=== PATIENT | female | born 1950 | race Caucasian/White ===

== ENCOUNTER 2017-08-06 10:26 | Day surgery (SDC) | payer MEDICARE, BC ==
[~2017-08-06 10:26] MED LIST: Buffered Lidocaine 0.9% SYRIN* 5 ML/SYR SYRINGE INTRADERM ONE
[2017-08-06] MEDS ORDERED: fentaNYL* 50 MCG/ML 2 ML VIAL (100 MCG VIAL) ONE (10:53)
[2017-08-06] MEDS ORDERED: Midazolam* 1 MG/ML 2 ML VIAL (2 MG) ONE (10:53)
[2017-08-06] MEDS ORDERED: Propofol* 10 MG/ML 20 ML BTL IV PUSH ONE (10:54)
[2017-08-06] MEDS ORDERED: Bupivacaine 0.25% SDV* 30 ML ONE (11:31)
[2017-08-06] MEDS ORDERED: Ondansetron INJ* 2 MG/ML VIAL IV PRN (11:47)
[2017-08-06] MEDS ORDERED: Naloxone* 0.4 MG/ML 1 ML VIAL IV PRN (11:47)
[2017-08-06 15:05] VITALS: BP 132/78
--- NOTE | 2017-08-07 12:57 | OP ---
OPERATIVE REPORT: DATE OF OPERATION: 08/06/17 DATE OF : 50 SURGEON: Sebastian Rahman MD MELTING OPERATOR: KATH Rice ANESTHESIOLOGIST: Dr. Barry. ANESTHESIA: Local MAC. PRE-OP DIAGNOSES: Right carpal tunnel syndrome and right ring trigger finger. POST-OP DIAGNOSES: Right carpal tunnel syndrome and right ring trigger finger. OPERATIVE PROCEDURE: 1. Right open carpal tunnel release. 2. Right ring trigger finger release of A1 rivera. INDICATIONS: Larissa is 67, she has severe carpal tunnel syndrome with quite a bit of atrophy and pret ty severe numbness and tingling as well as very severe trigger finger on the ring finger. We had marco ked about the need to do the carpal tunnel release to see if we could halt the progression of the dis ease and see what neurological function she had left in that median nerve, would also do the right ri ng trigger finger release. She understood the risks and benefits. She wanted to proceed. ESTIMATED BLOOD LOSS: 2 mL. COMPLICATIONS: None. FINDINGS: As expected. DESCRIPTION OF PROCEDURE: Larissa was seen in the preoperative holding area. The correct site, side, and procedure were identified. We came back to the operating room and the arm was prepped and draped in the usual fashion. A time-out was performed. I began by exsanguinating the arm with the Esmarch and the tourniquet was inflated to 250 mmHg. I craig d infiltrated with 0.25% plain Marcaine in the operative area. I made a 2-cm incision in the standar d location for an open carpal tunnel release. Dissection was carried down in the subcutaneous tissue and palmar fascia was released. The transverse carpal ligament was released just off the radial aspe ct of the hook of the hamate. The release was completed distally and proximally with the tenotomy sc issors. Once there was absolutely no compression on the nerve, we irrigated out the wound and the sk in was closed with 4-0 nylon suture. I then made a 1-cm longitudinal incision over the A1 rivera of the right ring finger. Dissection was carried down and the subcutaneous tissue was released. The sheath was visualized. A 15-blade was u sed to make a longitudinal split through the A1 rivera. The release was completed distally and proxi yoana with the tenotomy scissors. I then went ahead and excised some pretty significant flexor tenos ynovitis all without the tendons. I broke up the adhesions between the 2 tendons. Everything was lo oking good, so we irrigated out the wound and the skin was closed with 4-0 nylon suture. Wounds were dressed with Xeroform, 4x4, sterile Webril, and an Ruddy wrap. She was taken to the recovery room in stable condition. [id number]/[facility] #: [id number]
== END 2017-08-06 15:08 | disposition home or self-care (01) ==
LOC: OREAST 10:26
PROVIDERS: ATTEND Orthopaedic Surgery Hand Surgery
DX: G56.01 Carpal tunnel syndrome, right upper limb (principal); M65.341 Trigger finger, right ring finger; G82.20 Paraplegia, unspecified; Z79.01 Long term (current) use of anticoagulants; Z87.891 Personal history of nicotine dependence; R60.0 Localized edema; I34.0 Nonrheumatic mitral (valve) insufficiency; I48.1 Persistent atrial fibrillation; N31.9 Neuromuscular dysfunction of bladder, unspecified
CPT/HCPCS: J2250; J2704; J3010

== ENCOUNTER 2017-08-27 08:55 | Day surgery (SDC) | payer MEDICARE, BC ==
[2017-08-27] MEDS ORDERED: Bupivacaine 0.25% SDV* 30 ML ONE (11:36)
[2017-08-27] MEDS ORDERED: Naloxone* 0.4 MG/ML 1 ML VIAL IV PRN (11:54)
[2017-08-27] MEDS ORDERED: Lidocaine 2% PF* 10 ML AMP ONE (12:13)
[2017-08-27] MEDS ORDERED: Propofol* 10 MG/ML 20 ML BTL IV PUSH ONE (12:13)
[2017-08-27 13:18] VITALS: BP 128/70
--- NOTE | 2017-08-29 03:15 | OP ---
DATE OF OPERATION: 08/27/17 - [facility] DATE OF : 50 SURGEON: Sebastian Rahman MD FOREIGN LANGUAGE STENOGRAPHER: KATH Rice ANESTHESIOLOGIST: Dom Montanez DO ANESTHESIA: Local MAC. PRE-OP DIAGNOSIS: Left carpal tunnel syndrome. POST-OP DIAGNOSIS: Left carpal tunnel syndrome. OPERATIVE PROCEDURE: Left open carpal tunnel release. ESTIMATED BLOOD LOSS: 2 mL. INDICATIONS: Larissa has had progressive disease. She has had the right side done together with the right trigger finger release. This is done well. She is still having a bit of stiffness in the trigger finger, but it is coming along. She has severe carpal tunnel electrodiagnostically and clinically on the left. She understands she is to have incomplete relief as she also had on the right given she has severe disease there. We talked about risks and benefits. She wanted to proceed. COMPLICATIONS: None. FINDINGS: As expected. DESCRIPTION OF PROCEDURE: Larissa was seen in the preoperative holding area. The correct site, side, and procedure were identified. We came back to the operating room. We had a time-out. I infiltrated the operative area with 0.25 % plain Marcaine. The arm was then prepped and draped in the usual fashion and a time-out was performed. The arm was exsanguinated with Esmarch and the tourniquet was inflated to 250 mmHg. A 3-cm longitudinal skin incision was made . Dissection was carried down to the subcutaneous tissue and palmar fascia. The transverse carpal ligament was released from distal to the proximal just off the radial aspect of the hook of the hamate. The subcutaneous tissue was retracted volarly and ulnarly with the Deidra retractor and then the remainder of the transverse carpal ligament and distal antebrachial fascia was released with the tenotomy scissors under direct visualization. The release was checked. There was absolutely no compression on the nerve and it was completely released. We irrigated out the wounds. The skin was closed with 4-0 nylon suture. The wound was dressed with Xeroform, 4x4s, sterile Webril, and an Ruddy bandage. Tourniquet was deflated and she was taken to the recovery room in stable condition. [id number]/[facility] #: [id number] [facility]
== END 2017-08-27 13:20 | disposition home or self-care (01) ==
LOC: OREAST 08:55
PROVIDERS: ATTEND Orthopaedic Surgery Hand Surgery
DX: G56.02 Carpal tunnel syndrome, left upper limb (principal); I48.91 Unspecified atrial fibrillation; Z79.01 Long term (current) use of anticoagulants; Z87.891 Personal history of nicotine dependence; Z86.79 Personal history of other diseases of the circulatory system; Z68.32 Body mass index [BMI] 32.0-32.9, adult; N31.9 Neuromuscular dysfunction of bladder, unspecified
CPT/HCPCS: J2001; J2704